=== PATIENT | female | born 1955 | race Two or more races ===

== ENCOUNTER 2016-09-09 07:17 | Day surgery (SDC) | payer BC ==
[~2016-09-09 07:17] MED LIST: FENTANYL 250 MCG/5 ML AMP IV PRN; LACTATED RINGERS 1,000 ML IV SCH; MIDAZOLAM HCL 5 MG/5 ML VIAL IV PRN
[2016-09-09] MEDS ORDERED: IV START KIT ONE (07:20)
[2016-09-09] MEDS ORDERED: LACTATED RINGERS 1,000 ML ONE (07:20)
[2016-09-09] MEDS ORDERED: MIDAZOLAM HCL 5 MG/5 ML VIAL ONE (08:41)
[2016-09-09] MEDS ORDERED: FENTANYL 250 MCG/5 ML AMP ONE (08:41)
== END 2016-09-09 10:32 | disposition home or self-care (01) ==
LOC: SDC 07:17
PROVIDERS: ATTEND Internal Medicine Gastroenterology
PROC: 0DJD8ZZ Inspection of Lower Intestinal Tract, Via Natural or Artificial Opening Endoscopic (ICD-10-PCS; principal; 2016-09-09)
DX: R19.5 Other fecal abnormalities (principal); F32.9 Major depressive disorder, single episode, unspecified; E56.9 Vitamin deficiency, unspecified
CPT/HCPCS: 45378; J3010; J2250; J7120